=== PATIENT | male | born 1985 | race Caucasian/White ===

== ENCOUNTER 2021-02-03 19:54 | Emergency (ER) | payer OTHER ==
[2021-02-03 20:02] VITALS: BP 125/74; PULSE 88; TEMP 97; BMI 23.5
[2021-02-03] MEDS ORDERED: ACETAMINOPHEN 325 MG TABLET (FP) PO ONE (20:21)
[2021-02-03] MEDS ORDERED: ACETAMINOPHEN 325 MG TABLET (FP) ONE (20:24)
[2021-02-03 20:30] LABS: BASO % 0.5 % (0-2.0); EOS % 1.1 % (0-4.5); HEMATOCRIT 40.8 % (35.4-49); HEMOGLOBIN 13.5 GM/dL (11.7-16.9); LYMPH % 34.1 % (8-40); MCH 27.5 pg (25.7-33.7); MEAN CELL VOLUME 83.3 fl (80-96); MEAN PLT VOLUME 7.9 fl (7.5-11.1); MONO % 7.4 % (3.8-10.2); NEUT % 56.9 % (42.8-82.8); PLATELET COUNT 254 10^3/uL (134-434); RDW 13.3 % (11.9-15.9); WHITE BLOOD COUNT 8.6 K/mm3 (4.0-10.0)
[2021-02-03 20:36] LABS: INR 1.13 (0.83-1.09); PROTHROMBIN TIME (PATIENT) 13.7 SEC (9.7-13.0)
[2021-02-03 20:39] LABS: ACTIVATED PTT 32.1 SECONDS (25.2-36.5)
[2021-02-03 20:52] LABS: CHLORIDE 105 mmol/L (98-107); SODIUM 137 mmol/L (136-145)
[2021-02-03 20:54] LABS: CALCIUM 8.6 mg/dL (8.5-10.1)
[2021-02-03 20:55] LABS: ALBUMIN 3.7 g/dl (3.4-5.0); ANION GAP 8 MMOL/L (8-16); BLOOD UREA NITROGEN 16.9 mg/dL (7-18); CO2 24 mmol/L (21-32); MAGNESIUM 1.7 mg/dL (1.8-2.4)
[2021-02-03 20:58] LABS: CREATININE 1.1 mg/dL (0.55-1.3); GLUCOSE,RANDOM 100 mg/dL (74-106); SGOT/AST 34 U/L (15-37); SGPT/ALT 101 U/L (13-61)
[2021-02-03 21:00] LABS: BILIRUBIN,TOTAL 0.4 mg/dL (0.2-1); TOT PROT 8.6 g/dl (6.4-8.2)
[2021-02-03 21:01] LABS: ALK PHOS 87 U/L (45-117)
== END 2021-02-03 21:47 | disposition home or self-care (01) ==
LOC: JER 19:54
DX: R00.2 Palpitations (principal)
CPT/HCPCS: 36415; 71046-TC-FY; 80053; 82550; 83735; 84439; 84443; 84484; 85025; 85610; 85730; 93005; 93010; 99284-25

== ENCOUNTER 2021-03-31 18:25 | Observation (INO) | payer OTHER ==
[2021-03-31 19:10] VITALS: BMI 28.1
[2021-03-31] MEDS ORDERED: HALOPERIDOL LACTATE 5 MG/ML ONE (19:13)
[2021-03-31] MEDS ORDERED: LORazepam 2 MG/ML SDV VIAL ONE (19:14)
[2021-03-31] MEDS ORDERED: SODIUM CHLORIDE 1,000 ML IV SCH (19:15)
[2021-03-31] MEDS ORDERED: ACETAMINOPHEN 1000 MG/100 ML VIAL IVPB ONE (19:48)
[2021-03-31] MEDS ORDERED: ACETAMINOPHEN INJECTION 100 ML IVPB ONE (20:05)
[2021-03-31 20:46] LABS: CHLORIDE 106 mmol/L (98-107); SODIUM 138 mmol/L (136-145)
[2021-03-31 20:49] LABS: ANION GAP 11 MMOL/L (8-16); BLOOD UREA NITROGEN 18.5 mg/dL (7-18); CALCIUM 8.5 mg/dL (8.5-10.1); CO2 21 mmol/L (21-32); GLUCOSE,RANDOM 130 mg/dL (74-106)
[2021-03-31 20:50] LABS: ALBUMIN 3.6 g/dl (3.4-5.0)
[2021-03-31 20:51] LABS: BASO % 0.2 % (0-2.0); EOS % 0.2 % (0-4.5); HEMATOCRIT 39.8 % (35.4-49); LYMPH % 10.4 % (8-40); MCH 27.4 pg (25.7-33.7); MCHC 32.7 g/dl (32.0-35.9); MEAN CELL VOLUME 83.6 fl (80-96); MEAN PLT VOLUME 8.4 fl (7.5-11.1); MONO % 5.8 % (3.8-10.2); NEUT % 83.4 % (42.8-82.8); PLATELET COUNT 280 10^3/uL (134-434); RBC 4.76 M/mm3 (4.00-5.60); RDW 13.2 % (11.9-15.9)
[2021-03-31 20:52] LABS: CHOLESTEROL 226 mg/dL (50-200); SGOT/AST 23 U/L (15-37); SGPT/ALT 73 U/L (13-61); TRIGLYCERIDES 173 mg/dL (0-150)
[2021-03-31 20:53] LABS: CREATININE 1.1 mg/dL (0.55-1.3)
[2021-03-31 20:54] LABS: BILIRUBIN,TOTAL 0.3 mg/dL (0.2-1); LDL CHOLESTEROL (ONLY SJRH) 143 mg/dL (5-100)
[2021-03-31 20:55] LABS: ALK PHOS 80 U/L (45-117); HDL CHOLESTEROL 37 mg/dL (40-60)
[2021-03-31] MEDS ORDERED: ATORVASTATIN CA 10 MG TABLET (FP) PO ONE (22:12)
[2021-03-31] MEDS ORDERED: ATORVASTATIN CA 10 MG TABLET (FP) ONE (23:36)
[2021-04-01 02:03] LABS: URINE APPEARANCE CLEAR; URINE BILIRUBIN NEGATIVE (NEGATIVE); URINE COLOR YELLOW; URINE GLUCOSE (UA) NEGATIVE (NEGATIVE); URINE KETONE NEGATIVE (NEGATIVE); URINE LEUK ESTERASE NEGATIVE (NEGATIVE); URINE NITRITE NEGATIVE (NEGATIVE); URINE PROTEIN NEGATIVE (NEGATIVE); URINE UROBILINOGEN 0.2 mg/dL (0.2-1.0)
[2021-04-01] MEDS ORDERED: ACETAMINOPHEN 1000 MG/100 ML VIAL IVPB PRN (05:30)
[2021-04-01] MEDS: SODIUM CHLORIDE 1,000 ML IV SCH (07:55)
[2021-04-01 08:43] LABS: BASO % 0.2 % (0-2.0); EOS % 0.3 % (0-4.5); HEMATOCRIT 38.3 % (35.4-49); HEMOGLOBIN 12.7 GM/dL (11.7-16.9); LYMPH % 18.1 % (8-40); MCH 27.4 pg (25.7-33.7); MEAN CELL VOLUME 82.9 fl (80-96); MEAN PLT VOLUME 7.8 fl (7.5-11.1); MONO % 7.5 % (3.8-10.2); NEUT % 73.9 % (42.8-82.8); PLATELET COUNT 256 10^3/uL (134-434); RBC 4.62 M/mm3 (4.00-5.60); RDW 13.3 % (11.9-15.9); WHITE BLOOD COUNT 9.6 K/mm3 (4.0-10.0)
[2021-04-01 09:21] LABS: CALCIUM 8.3 mg/dL (8.5-10.1)
[2021-04-01 09:22] LABS: ALBUMIN 3.2 g/dl (3.4-5.0); BLOOD UREA NITROGEN 11.1 mg/dL (7-18)
[2021-04-01 09:25] LABS: CREATININE 0.9 mg/dL (0.55-1.3)
[2021-04-01 09:26] LABS: BILIRUBIN,TOTAL 0.9 mg/dL (0.2-1)
[2021-04-01 09:27] LABS: TOT PROT 7.4 g/dl (6.4-8.2)
[2021-04-01 10:59] LABS: INR 1.14 (0.83-1.09); PROTHROMBIN TIME (PATIENT) 13.4 SEC (9.7-13.0)
[2021-04-01 11:02] LABS: ACTIVATED PTT 30.3 SECONDS (25.2-36.5)
[2021-04-01] MEDS ORDERED: ATORVASTATIN CA 10 MG TABLET (FP) PO SCH (22:00)
[2021-04-02] MEDS ORDERED: ATORVASTATIN CA 10 MG TABLET (FP) ONE (03:00)
[2021-04-02] MEDS: SODIUM CHLORIDE 1,000 ML IV SCH (03:03)
[2021-04-02 06:01] VITALS: TEMP 98.6
[2021-04-02 10:33] VITALS: BP 119/93; PULSE 87
== END 2021-04-02 10:51 | disposition home or self-care (01) ==
LOC: JER 18:25 → JERBED 21:26
PROVIDERS: ADMIT Internal Medicine
PROC: 3E033GC Introduction of Other Therapeutic Substance into Peripheral Vein, Percutaneous Approach (ICD-10-PCS; principal; 2021-03-31)
DX: R55 Syncope and collapse (principal); R51.9 Headache, unspecified; Z20.822 Contact with and (suspected) exposure to COVID-19; R00.1 Bradycardia, unspecified
CPT/HCPCS: 36415; 70450-TC; 70551-TC; 80053; 80061; 81003; 82550; 82553; 82962; 83036; 84443; 84484; 85025; 85610; 85730; 86850; 86900; 86901; 93005; 93010; 93880-TC; 99285-25; C9803; G0378; J0131; U0003; U0005